=== PATIENT | male | born 1935 | race Caucasian/White ===

== ENCOUNTER 2016-06-13 12:27 | Observation (INO) | payer OTHER ==
--- NOTE | 2016-06-13 12:51 | EDPHY ---
H & P Stated Complaint: "tthinks he has lyme disease" increasing fatigue/nazario Time Seen by Provider: 06/13/16 12:51 HPI/ROS: CHIEF COMPLAINT: Headache, fatigue, generalized weakness, forgetfulness HISTORY OF PRESENT ILLNESS: The patient presents to the ED with headache, fatigue and generalized weakness. The patient also reports some subjective fevers and myalgias. He reports his symptoms have been increasing over the past week. Patient was initially concerned that he have Lyme disease as he did experience a [place] tick bite earlier in the summer. He reportedly was treated with doxycycline at that point time. Patient does report a prior history of diabetes. The patient does report a history of using both magnesium citrate for chronic constipation. The patient also reportedly does use vitamin- D as a dietary supplement. The patient does report a slight cough. He reports urinary frequency without dysuria. The patient denies focal numbness or weakness. REVIEW OF SYSTEMS: A comprehensive 10 point review of systems is otherwise negative aside from elements mentioned in the history of present illness. Source: Patient Exam Limitations: No limitations - Personal History Current Tetanus/Diphtheria Vaccine: Yes - Medical/Surgical History Hx Diabetes: Yes Other PMH: HTN, diabetes - Social History Smoking Status: Never smoked - Physical Exam Exam: General Appearance: Alert, no distress Eyes: Pupils equal and round no pallor or injection ENT, Mouth: Mucous membranes moist Respiratory: There are no retractions, lungs are clear to auscultation Cardiovascular: Regular rate and rhythm Gastrointestinal: Abdomen is soft and nontender, no masses, bowel sounds normal Neurological: A&O, normal motor function, normal sensory exam, normal cranial nerves Skin: Warm and dry, no rashes Musculoskeletal: Neck is supple nontender Extremities: symmetrical, full range of motion Psychiatric: Patient is oriented X 3, there is no agitation Constitutional: Initial Vital Signs Temperature (C) 36.8 C 06/13/16 12:33 Heart Rate 115 H 06/13/16 12:33 Respiratory Rate 20 06/13/16 12:33 Blood Pressure 190/99 H 06/13/16 12:33 O2 Sat (%) 93 06/13/16 12:33 O2 Delivery Mode Room Air Allergies/Adverse Reactions: No Known Allergies Allergy (Verified 06/13/16 12:32) Home Medications: Medication Instructions Recorded Ascorbic Acid [Vitamin C 250 mg 250 mg PO DAILY 06/13/16 (*)] Aspirin [Aspirin 81mg (*)] 81 mg PO DAILY 06/13/16 C/E/Zn/Cu/OM3/DHA/EPA/LUT/ZEAX 1 each PO DAILY 06/13/16 [Preservision Areds 2 Softgel] Cholecalciferol Vit D3 [Vitamin D3 1,000 units PO DAILY 06/13/16 (*)] Cyanocobalamin [Vitamin B12 (*)] 100 mcg PO DAILY 06/13/16 Glucosamine/Chondroitin 1 each PO BID 06/13/16 [Glucosamine/Chondroitin (*)] Herbals/Supplements -Info Only 1 ea PO DAILY 06/13/16 Lisinopril [Zestril 40 mg (*)] 40 mg PO DAILY@16 06/13/16 Magnesium Oxide [Magnesium Oxide 800 mg PO DAILY 06/13/16 400 mg (*)] Multivitamins [Multivitamin (*)] 1 each PO DAILY 06/13/16 [place]-3 Fatty Acids [Fish Oil 1000 1,000 mg PO BID 06/13/16 mg (*)] amLODIPine BESYLATE [Norvasc 5 mg 5 mg PO DAILY@18 06/13/16 (*)] glipiZIDE [Glipizide] 5 mg PO BID 06/13/16 metFORMIN HCL [Glucophage 500 mg 500 mg PO BIDMEAL 06/13/16 (*)] Medical Decision Making - Diagnostics EKG Interpretation: EKG: Complete interpretation has been separately recorded in the [facility] archive. Summary impression: Sinus rhythm, low voltage Imaging: CT head without contrast: Negative for intracranial abnormality. CT chest abdomen pelvis: Negative for intrathoracic or intra-abdominal malignancy. Study results reviewed by myself and discussed with radiologist Dr. Shashank Arriaga. ED Course/Re-evaluation: The patient presents to the ED with fatigue, generalized weakness and headache. In the course of his workup he was noted to have a markedly elevated calcium of 13.8. The patient is currently on vitamin-D supplementation. The patient's parathyroid hormone level returned at a low level. The patient's chest x-ray demonstrates no evidence of acute disease. A CT scan of the head, chest abdomen pelvis has been ordered to exclude the possibility of an occult malignancy. Consultation is made with the hospitalist service for admission. In the ED, the patient was treated with IV normal saline rehydration, subcutaneous calcitonin as well as ZA 4mg IV. CT scans of the chest abdomen pelvis demonstrate no evidence of malignancy. The patient does report using vitamin-D chronically. It is certainly possible his symptoms may be secondary to vitamin D intoxication. The patient will be admitted to a monitored bed this evening for further evaluation. Consultation was made with Dr. Aly from the hospitalist service who will admit the patient. Differential Diagnosis: Differential diagnosis considered includes occult malignancy, metabolic abnormality, renal failure, primary hyperparathyroidism, arrhythmia, medication side effect, multiple myeloma Critical Care Time: Critical care time exclusive of procedures and exclusive of the PA's time was 45 minutes, performed by myself, Jose Guadalupe Hurt MD. The patient presents to the ED with acute altered mental status and a critically elevated calcium of 13.7. The patient required immediate treatment of his hypercalcemia. Patient will require admission to the hospital for supportive care and stabilization. - Data Points Laboratory Results: Laboratory Results 06/13/16 13:10 06/13/16 13:10 06/13/16 06/13/16 06/13/16 14:10 13:10 13:00 WBC 11.63 H 10^3/uL (3.80-9.50) RBC 5.44 10^6/uL (4.40-6.38) Hgb 16.0 g/dL (13.7-17.5) Hct 46.6 % (40.0-51.0) MCV 85.7 fL (81.5-99.8) MCH 29.4 pg (27.9-34.1) MCHC 34.3 g/dL (32.4-36.7) RDW 13.9 % (11.5-15.2) Plt Count 423 H 10^3/uL (150-400) MPV 10.3 fL (8.7-11.7) Neut % (Auto) 75.2 H % (39.3-74.2) Lymph % (Auto) 14.4 L % (15.0-45.0) [place] % (Auto) 9.2 % (4.5-13.0) Eos % (Auto) 0.4 L % (0.6-7.6) Baso % (Auto) 0.5 % (0.3-1.7) Nucleat RBC Rel Count 0.0 % (0.0-0.2) Absolute Neuts (auto) 8.74 H 10^3/uL (1.70-6.50) Absolute Lymphs (auto) 1.68 10^3/uL (1.00-3.00) Absolute Monos (auto) 1.07 H 10^3/uL (0.30-0.80) Absolute Eos (auto) 0.05 10^3/uL (0.03-0.40) Absolute Basos (auto) 0.06 10^3/uL (0.02-0.10) Absolute Nucleated RBC 0.00 10^3/uL (0-0.01) Immature Gran % 0.3 % (0.0-1.1) Immature Gran # 0.03 10^3/uL (0.00-0.10) ESR 11 MM/HR (0-20) Sodium 140 mEq/L (134-144) Potassium 4.4 mEq/L (3.5-5.2) Chloride 97 mEq/L (97-110) Carbon Dioxide 28 mEq/l (22-31) Anion Gap 15 mEq/L (8-16) BUN 27 H mg/dL (7-23) Creatinine 1.5 H mg/dL (0.7-1.3) Estimated GFR 45 Glucose 129 H mg/dL (70-100) Calcium 13.7 H* mg/dL (8.5-10.4) Phosphorus 3.8 mg/dL (2.5-4.5) Total Bilirubin 0.7 mg/dL (0.1-1.4) Conjugated Bilirubin 0.3 mg/dL (0.0-0.5) Unconjugated Bilirubin 0.4 mg/dL (0.0-1.1) AST 44 IU/L (17-59) ALT 34 IU/L (21-72) Alkaline Phosphatase 107 IU/L (38-126) C-Reactive Protein 8.2 mg/L (<10.0) Total Protein 8.2 g/dL (6.3-8.2) Total Protein (PEP) 8.2 g/dL (6.3-8.2) Albumin 4.8 g/dL (3.5-5.0) Albumin (PEP) Pending Albumin/Globulin Ratio Pending [id number] Pending [id number] Pending Beta Globulins Pending Gamma Globulins Pending PEP Impression Pending 25-OH Vitamin D Total Pending TSH Pending PTH Intact 8.0 L pg/ml (10.8-79.4) Calcium (PTH Intact) 13.8 H* ng/dL (8.5-10.4) Creat (PTH Intact) 1.5 H mg/dL (0.7-1.3) Phosph (PTH Intact) 3.9 mg/dL (2.5-4.5) Urine Color YELLOW Urine Appearance CLEAR Urine pH 6.0 (5.0-7.5) Ur Specific Ray 1.006 (1.002-1.030) Urine Protein NEGATIVE (NEGATIVE) Urine Ketones NEGATIVE (NEGATIVE) Urine Blood NEGATIVE (NEGATIVE) Urine Nitrate NEGATIVE (NEGATIVE) Urine Bilirubin NEGATIVE (NEGATIVE) Urine Urobilinogen NEGATIVE EU (0.2-1.0) Ur Leukocyte Esterase NEGATIVE (NEGATIVE) Ur Culture Indicated? NOT INDICATED (NI) Urine Glucose NEGATIVE (NEGATIVE) Influenza A & B (PCR) NEGATIVE FOR FLU (NEGATIVE) Medications Given: Discontinued Medications Calcitonin (Calcitonin Inj Syringe) 320 units SC EDNOW ONE Stop: 06/13/16 14:31 Last Admin: 06/13/16 15:14 Dose: 320 units Sodium Chloride (Ns) 1,000 mls @ 0 mls/hr IV ONCE ONE PRN Reason: Wide Open Stop: 06/13/16 13:44 Last Admin: 06/13/16 14:02 Dose: 1,000 mls Sodium Chloride (Ns) 1,000 mls @ 0 mls/hr IV ONCE ONE PRN Reason: Wide Open Stop: 06/13/16 13:44 Last Admin: 06/13/16 14:02 Dose: 1,000 mls Zoledronic Acid 4 mg/ Dextrose 105 mls @ 210 mls/hr IV ONCE ONE Stop: 06/13/16 14:17 Last Admin: 06/13/16 15:10 Dose: 105 mls Departure - Departure Disposition: [facility] Acute Clinical Impression: Hypercalcemia, Altered mental status Condition: Fair
[2016-06-13 13:15] LABS: % IMMATURE GRANULYOCYTES 0.3 % (0.0-1.1); ABSOLUTE IMMATURE GRANULOCYTES 0.03 10^3/uL (0.00-0.10); ADD DIFF? NO; ADD MORPH? NO; ADD SCAN? NO; ATYPICAL LYMPHOCYTE FLAG 10 (0-99); FRAGMENT RBC FLAG 0 (0-99); HEMATOCRIT 46.6 % (40.0-51.0); LEFT SHIFT FLG 0 (0-99); LIPEMIA HEMOLYSIS FLAG 90 (0-99); MEAN CELL HEMOGLOBIN 29.4 pg (27.9-34.1); MEAN CELL HEMOGLOBIN CONCENTR. 34.3 g/dL (32.4-36.7); MEAN CELL VOLUME 85.7 fL (81.5-99.8); MEAN PLATELET VOLUME 10.3 fL (8.7-11.7); PLATELET CLUMPS FLAG 0 (0-99); PLATELET COUNT 423 10^3/uL (150-400); RED BLOOD CELL COUNT 5.44 10^6/uL (4.40-6.38); RED CELL DISTRIBUTION WIDTH 13.9 % (11.5-15.2)
[2016-06-13 13:27] LABS: SEDIMENTATION RATE 11 MM/HR (0-20)
[2016-06-13 13:31] LABS: ANION GAP 15 mEq/L (8-16); C-REACTIVE PROTEIN 8.2 mg/L (<10.0); CARBON DIOXIDE 28 mEq/l (22-31); CHLORIDE 97 mEq/L (97-110); CREATININE 1.5 mg/dL (0.7-1.3); GLOMERULAR FILTRATION RATE 45; GLUCOSE 129 mg/dL (70-100); POTASSIUM 4.4 mEq/L (3.5-5.2); SODIUM 140 mEq/L (134-144)
[2016-06-13 13:35] LABS: CALCIUM 13.7 mg/dL (8.5-10.4)
[2016-06-13] MEDS ORDERED: NS 1,000 ML IV ONE ×2 (13:43)
[2016-06-13] MEDS ORDERED: ZOLEDRONIC ACID 4 MG in D5W 100 ML IV ONE (13:48)
[2016-06-13 13:49] LABS: CREATININE 1.5 mg/dL (0.7-1.3)
--- NOTE | 2016-06-13 13:53 | CPEKG ---
Heart Rate: 96 RR Interval: 625 P-R Interval: 208 QRSD Interval: 86 QT Interval: 332 QTC Interval: 420 P [place]: 35 QRS [place]: 0 T Wave [place]: 34 EKG Severity - BORDERLINE ECG - EKG Impression: SINUS RHYTHM EKG Impression: PROBABLE LEFT ATRIAL ABNORMALITY EKG Impression: LOW VOLTAGE THROUGHOUT Electronically Signed By: Jose Guadalupe Hurt 13-Jun-2016 16:01:32
[2016-06-13 13:56] LABS: CALCIUM 13.8 ng/dL (8.5-10.4)
[2016-06-13 14:21] LABS: COLOR YELLOW; LEUKOCYTE ESTERASE,URINE NEGATIVE (NEGATIVE); NITRITE,URINE NEGATIVE (NEGATIVE)
[2016-06-13] MEDS ORDERED: IOPAMIDOL (ISOVUE-300) 50 ML VIAL IV ONE (14:27)
[2016-06-13] MEDS ORDERED: CALCITONIN 200 UNITS/ML SYR SC ONE (14:30)
[2016-06-13] MEDS ORDERED: ONDANSETRON DISINTEGRATING 4 MG TAB PO PRN (14:58)
[2016-06-13] MEDS ORDERED: ONDANSETRON 4 MG/2 ML VIAL IVP PRN (14:58)
[2016-06-13] MEDS ORDERED: ACETAMINOPHEN 325 MG TAB PO PRN (14:58)
[2016-06-13] MEDS ORDERED: hydrALAZINE 25 MG TAB PO PRN (15:06)
--- NOTE | 2016-06-13 15:25 | DX ---
PA and Lateral Chest 06/13/2016 at 12:47 PM Indication: Cough Comparison: None Findings: The lungs are well aerated and clear. No pneumothorax, airspace consolidation, edema, or ef fusion. The heart size is normal. Pulmonary vasculature is within normal limits. Mild multilevel dege nerative disc disease. Impression: Clear lungs. No acute process.
[2016-06-13 15:41] LABS: ALANINE AMINOTRANSFERASE 34 IU/L (21-72); ALBUMIN 4.8 g/dL (3.5-5.0); ALKALINE PHOSPHATASE 107 IU/L (38-126); ASPARTATE AMINOTRANSFERASE 44 IU/L (17-59); BILIRUBIN,TOTAL 0.7 mg/dL (0.1-1.4); BILIRUBIN-CONJUGATED 0.3 mg/dL (0.0-0.5); BILIRUBIN-UNCONJUGATED 0.4 mg/dL (0.0-1.1); TOTAL PROTEIN 8.2 g/dL (6.3-8.2)
[2016-06-13 15:57] LABS: VITAMIN D 25-HYDROXY TOTAL > 126 ng/mL (30-100)
[2016-06-13] MEDS ORDERED: LISINOPRIL 40 MG TAB PO SCH (16:00)
[2016-06-13] MEDS ORDERED: NS 1,000 ML IV SCH (16:15)
[2016-06-13] MEDS ORDERED: D50W 25 GM/50 ML SYR IVP PRN (16:15)
--- NOTE | 2016-06-13 16:28 | GHP ---
[f rep st] HISTORY AND PHYSICAL DATE OF ADMISSION: 06/13/2016 CHIEF COMPLAINT: Fatigue, hypercalcemia. HISTORY OF PRESENT ILLNESS: The patient is an 80-year-old male with a history of Lyme disease treated this summer, bipolar disorder, untreated, and OA, presenting with fatigue. States he has been more weak with some subjective fevers and myalgias over the past week. He denies nausea, vomiting, chest pain or shortness of breath. Normally he can walk quickly to [employer] but he was not able to today just because so tired. No lower extremity edema, no PND, no orthopnea. He noticed a bump on his left thigh similar to a lesion he had initially with Lyme disease. He does take vitamin D 5000 units twice a day. Denies Tums or excess milk intake, a gallon lasts a week to 10 days. He used to take calcium at significant doses. Denies constipation. No headache, no confusion. Does report chills to the point where he is shaking. REVIEW OF SYSTEMS: A complete 10-point review of systems is negative, except as in HPI. PAST MEDICAL HISTORY: Lyme disease, treated with doxycycline in October 2015, bipolar disorder, he refuses treatment, L5 radiculopathy on the right, wears a brace, OA of hips and knees, hypertension, controlled diabetes. PAST SURGICAL HISTORY: Total abdominal cyst. SOCIAL HISTORY: Lives in [place]. He lives with his , however, it is more that they are roommates. It appears that there is a difficult relationship between he and daughter as well. Denies alcohol. Quit smoking in 1967, smoked for 15 years. No illicit. FAMILY HISTORY: Mother with TIA's, age 99, father with NM, age 55 ankle. Uncle of NM at age 46. ALLERGIES: No known drug allergies. MEDICATIONS: Magnesium oxide p.o. daily, herbal supplement, fish oil, multivitamin, vitamin D3 5000 units p.o. b.i.d., aspirin 81 mg daily, glucosamine/chondroitin 1 tab b.i.d., vitamin B 100 mcg daily, vitamin C 250 mg daily, Norvasc 5 mg daily, Lisinopril 40 mg daily, Glipizide 5 mg b.i.d., Metformin 500 mg b.i.d. PHYSICAL EXAM: VITAL SIGNS: Blood pressure is 199/99, repeat 169/85, 200/100, heart rate 90s to 100s, respirations 14, 93% on 2 L. GENERAL: Appears anxious , is shaking, in bed. CV: Tachy, regular. No murmurs, gallops or rubs. LUNGS: Clear to auscultation bilaterally. ABDOMEN: Soft, nontender, nondistended. Positive bowel sounds. : No suprapubic tenderness, no Flores. MUSCULOSKELETAL: With 5/5 upper extremity strength, 5/5 left lower extremity , 3/5 right lower extremity. NEURO: Cranial nerves II-XII intact. PSYCH: Anxious, alert and oriented x3, difficult to get answers out of him when questioning. LABORATORY DATA: WBC 11.6, hemoglobin 16, hematocrit 46, platelets 423. Sodium 140, potassium 4.4, chloride 97, carbon dioxide 28, BUN 27, creatinine 1.5, glucose 129, calcium 13.7, phos 3.8, total bilirubin 0.7, AST 44, ALT 34, CRP is 8.2, albumin 4.8. Vitamin D of 126. CT of abdomen and pelvis pending. EKG personally reviewed by me, sinus tach abnormality, no ST elevation or depression. Chest x-ray personally reviewed by me, clear, no nodules or effusions. ASSESSMENT AND PLAN: 1. Fatigue: secondary to hypercalcemia. The patient is afebrile, no evidence of infection. Chest x-ray and urinalysis are negative. A CT of abdomen, pelvis and chest are pending. 2. Hypercalcemia: due to Vit D toxicity; he endorses taking 5000 units BId. Low PTH, thus checked Vit D level and 126. Continue IVFs fluids. Was dosed with zoledronic acid in the emergency room. Albumin is within normal. Imaging not suggestive of malignancy. There is some literature on prednisone for Vit D toxicity. Will start Pred 40mg and monitor sugars closely. Consider Endo consult in morning. 3. Accelerated hypertension, blood pressure elevated at 200 in the emergency room. This is likely secondary to stress. Hold lisinopril given MARYANN. We will dose home Norvasc and p.r.n. hydralazine. 4. Acute on chronic kidney disease, creatinine normal at 1.1 and 1.2, elevated at 1.5. I suspect this is secondary to dehydration versus hypercalcemia. Continue IV fluids. Recheck in the morning. 5. Right-sided L5 radiculopathy, patient followed by [facility]. Continue his brace, we will have PT evaluate. 6. Bipolar disease, patient refuses treatment. 7. Controlled DM: SSI while here. Monitor closely with prednisone 8. Diet: DM 8. Deep venous thrombosis prophylaxis, Lovenox. DISPOSITION: Patient warrants inpatient admission given acute hypercalcemia, warranting IV fluids and further metabolic panel. /[id number]/MODL MTDD
--- NOTE | 2016-06-13 17:01 | CT ---
CT Chest CT Abdomen and Pelvis. Indication: Hypercalcemia with normal parathyroid function. Evaluate for malignancy. TECHNIQUE: 1.5 mm contiguous helical axial scanning from the thoracic inlet through the pubic symphys is after the uneventful administration of 75 mL of Isovue-300. Routine reconstructions were performed in the coronal and sagittal planes. Dose reduction technique was performed. Comparisons: MRI lumbar spine from October 05, 2011. FINDINGS CHEST: The thyroid gland is unremarkable. There is no mediastinal or hilar adenopathy. Scattered norm al lymph nodes are present. Heart size is normal. Mild/moderate coronary artery calcification is pres ent on this nongated study. There is a hiatal hernia. The lungs exhibit patchy areas of dependent and nondependent interstitial scarring but no definite ma sses. ABDOMEN AND PELVIS: The liver, pancreas, and spleen are unremarkable. The spleen is not enlarged. A g allbladder stone is present in the gallbladder neck. There is mild prominence of left adrenal gland w ithout evidence of a mass. The right adrenal gland is unremarkable. The kidneys are unremarkable. Sma ll bowel and colon are normal. Moderate atherosclerotic disease is present. There are some degenerative changes along the sacroiliac joints. There are some scattered bone island s but no definite bony lytic or blastic lesions. The lumbar and thoracic spine exhibit a moderate adrian unt of degenerative change as expected in an 80 year old. IMPRESSION: 1. Scattered mild interstitial lung disease. 2. Mild to moderate coronary artery calcification on this nongated study. 3. No evidence of abdominal or chest mass to explain the patient's hypercalcemia. 4. The bones exhibit some degenerative changes but no definite changes of myeloma. Critical results discussed by Dr. Arriaga with Dr. Hurt today 1524 hours.
--- NOTE | 2016-06-13 17:01 | CT ---
CT Brain (Without Contrast) - June 13, 2016, 1444 hours History: Headache, hypertension and fatigue. Comparison: None. Technique: Axial computed tomographic images of the brain without contrast. Dose reduction techniques were utilized. Findings: Ventricles, cisterns, and sulci are widened consistent with atrophy. No hydrocephalus, mid line shift/herniation, or epidural/subdural hematomas. No acute intraparenchymal hemorrhage or mass e ffect. Cerebrovascular atherosclerosis. Hypodensities in the white matter of bilateral cerebral hemis pheres. Bone windows demonstrate no displaced fractures. Paranasal sinuses and mastoid air cells are clear. Impression: 1. Moderate atrophy. 2. No acute hemorrhage, hydrocephalus, or mass effect. 3. Cerebrovascular atherosclerosis. 4. No definite acute infarct. 5. Moderate microvascular ischemic disease. Critical results relayed to Dr. Shashank Arriaga to [Jose Guadalupe] Licha today 1506 hours.
[2016-06-13] MEDS ORDERED: amLODIPine BESYLATE 5 MG TAB PO SCH (18:00)
[2016-06-13] MEDS: INSULIN LISPRO 100 UNIT/ML SC SCH (18:03)
[2016-06-13] MEDS: OMEGA-3 FATTY ACIDS 1,000 MG CAP PO SCH (22:36)
[2016-06-13] MEDS: HEPARIN 5,000 UNIT/0.5 ML SYR SC SCH (22:36)
[2016-06-13] MEDS: GLUCOSAMINE/CHONDROITIN CAP PO SCH (22:36)
[2016-06-14] MEDS: NS 1,000 ML IV SCH ×2 (01:10→08:39)
[2016-06-14 05:34] LABS: HEMATOCRIT 38.2 % (40.0-51.0); HEMOGLOBIN 12.8 g/dL (13.7-17.5); MEAN CELL HEMOGLOBIN 29.3 pg (27.9-34.1); MEAN CELL HEMOGLOBIN CONCENTR. 33.5 g/dL (32.4-36.7); MEAN CELL VOLUME 87.4 fL (81.5-99.8); RED BLOOD CELL COUNT 4.37 10^6/uL (4.40-6.38); RED CELL DISTRIBUTION WIDTH 13.9 % (11.5-15.2)
[2016-06-14] MEDS: HEPARIN 5,000 UNIT/0.5 ML SYR SC SCH ×2 (05:35→14:55)
[2016-06-14 06:11] LABS: ANION GAP 7 mEq/L (8-16); CALCIUM 10.1 mg/dL (8.5-10.4); CARBON DIOXIDE 28 mEq/l (22-31); CHLORIDE 105 mEq/L (97-110); CREATININE 1.2 mg/dL (0.7-1.3); GLOMERULAR FILTRATION RATE 58; GLUCOSE 139 mg/dL (70-100); POTASSIUM 4.3 mEq/L (3.5-5.2); SODIUM 140 mEq/L (134-144)
[2016-06-14] MEDS: OMEGA-3 FATTY ACIDS 1,000 MG CAP PO SCH (08:29)
[2016-06-14] MEDS: GLUCOSAMINE/CHONDROITIN CAP PO SCH (08:29)
[2016-06-14] MEDS: INSULIN LISPRO 100 UNIT/ML SC SCH ×2 (08:31→12:53)
[2016-06-14] MEDS ORDERED: CALCITONIN 200 UNITS/SPRAY INH NS ONE (09:00)
[2016-06-14] MEDS ORDERED: MAGNESIUM OXIDE 400 MG TAB PO SCH (09:00)
[2016-06-14] MEDS ORDERED: Herbals/Supplements -Info Only PO SCH (09:00)
[2016-06-14] MEDS ORDERED: ASCORBIC ACID 500 MG TAB PO SCH (09:00)
[2016-06-14] MEDS ORDERED: MULTIVITAMINS 1 EACH TAB PO SCH (09:00)
[2016-06-14] MEDS ORDERED: predniSONE 20 MG TAB PO SCH (09:00)
[2016-06-14] MEDS ORDERED: ASPIRIN 81 MG CHEWABLE TAB PO SCH (09:00)
[2016-06-14] MEDS ORDERED: CYANO/VITAMIN B12 100 MCG TAB PO SCH (09:00)
[2016-06-14 16:54] VITALS: BP 151/80; PULSE 97; RESP 16; TEMP 97.2; O2SAT 93
--- NOTE | 2016-06-14 18:09 | GDS ---
[f rep st] DISCHARGE SUMMARY DISCHARGE DIAGNOSES: Include: 1. Hypercalcemia, presumed secondary to vitamin D toxicity. 2. History of Lyme disease, treated with doxycycline. 3. Bipolar disorder, not on active treatment. 4. L5 radiculopathy, uses a brace. 5. Hypertension. 6. Diabetes. 7. Osteoarthritis. HISTORY OF PRESENT ILLNESS: An 80-year-old male, who presented with complaints of fatigue, found to have a calcium of greater than 13. For details of the patient's initial presentation, please see the history and physical dated 06/13/2016. CONSULTATIVE SERVICES: None. PROCEDURES: On 06/13/2016, patient had a chest and abdomen CT that showed scattered mild interstitia l lung markings. No abdominal or chest masses, and mild degenerative changes of the bone. On 2016, patient had a noncontrast CT of the head that showed mild atrophy, no acute hemorrhage or infar ct. On 06/13/2016, patient had a chest x-ray that showed no acute cardiopulmonary process. HOSPITAL COURSE BY ISSUE: 1. Hypercalcemia: Patient presented with a calcium of 13.7. On history and review, became aware th at the patient is taking very high dose vitamin D supplementation because he thought it was healthy. The patient's PTH was measured and noted to be low at 88. The patient was aggressively fluid resusc itated, treated with bisphosphonates in the emergency department, and oral prednisone on the medical floor. The morning after presentation, his calcium levels have normalized to 10.1, and he is feeling markedly improved. Recommendations are for disposition and followup calcium checked next week by ei ther his primary care provider or Endocrinology. We have recommended he no longer take any vitamin D supplementation until he has normalized consistency in his calcium levels and has been instructed to resume a vitamin D supplementation by his outpatient provider. 2. Acute kidney injury: Patient presented with a creatinine of 1.5, which has normalized to his bas diane at 1.2 after fluid resuscitation. 3. Diabetes: Patient does have mildly elevated blood glucose in the 120s to 130s. Will continue hi s home medications. MEDICATIONS AT THE TIME OF DISPOSITION: Please reference medication reconciliation printed on 2016. PENDING STUDIES AT THE TIME OF THIS DICTATION: Include blood cultures drawn 06/13/2016, which are pr eliminary no growth to date. FOLLOWUP APPOINTMENTS: We have recommended that he see either his primary care provider or [facility] next week for his first lab check. Case Management is helping arrange this followup. I spent greater than 30 minutes in the planning and coordination of this discharge. /[id number]/MODL
[2016-06-15 12:25] LABS: PTH-RELATED PEPTIDE 0.8 pmol/L (<2.0)
== END 2016-06-14 17:30 | disposition home or self-care (01) ==
LOC: INTOOBSV 14:12 → F3E 16:01
PROVIDERS: ADMIT Hospitalist; ATTEND Hospitalist
DX: E83.52 Hypercalcemia (principal); N17.9 Acute kidney failure, unspecified; T45.2X1A Poisoning by vitamins, accidental (unintentional), initial encounter; M54.16 Radiculopathy, lumbar region; I10 Essential (primary) hypertension; E11.9 Type 2 diabetes mellitus without complications; F31.9 Bipolar disorder, unspecified; K59.09 Other constipation; Z86.19 Personal history of other infectious and parasitic diseases; Z82.49 Family history of ischemic heart disease and other diseases of the circulatory system; Z79.84 Long term (current) use of oral hypoglycemic drugs
CPT/HCPCS: 70450; 71020; 71260; 74177; 93005; 96360; 97161; 99291; G0378; J0630; J1815; J3489; Q9967; 82397-90; 82652-90